=== PATIENT | female | born 1980 ===

== ENCOUNTER 2020-08-10 15:04 | Emergency (ER) | payer MEDICAID ==
[2020-08-10 15:26] VITALS: BP 121/91
--- NOTE | 2020-08-10 16:11 | Event Note ---
ED Screening Note ED Screening Note: abd pain n/v that began today hx of ventral hernia states she was at [facility] last week, states she was given nausea medication and something for reflux states she has appointment with general surgeon on 08/13/2020 allergy:ibuprofen PSHx gastric sleeve, cholecystecomy, hernia repair last BM this morning This initial assessment/diagnostic orders/clinical plan/treatment(s) is/are subject to change based on patients health status, clinical progression and re- assessment by fellow clinical providers in the ED. Further treatment and workup at subsequent clinical providers discretion. Patient/guardian urged not to elope from the ED as their condition may be serious if not clinically assessed and managed. Initial orders include: labs, UA
[2020-08-10 16:26] LABS: Basophils % (Auto) 0.7 % (0.0-1.8); Eosinophils # (Auto) 0.1 K/mm3 (0.0-0.4); Eosinophils % (Auto) 1.2 % (0.0-4.3); Hematocrit 37.1 % (30.3-42.9); Hemoglobin 12.4 gm/dl (10.1-14.3); Lymphocytes # (Auto) 1.7 K/mm3 (1.2-5.4); Lymphocytes % (Auto) 25.7 % (13.4-35.0); Mean Corpuscular HGB Conc 34 % (30-34); Mean Corpuscular Volume 92 fl (79-97); Monocytes # (Auto) 0.5 K/mm3 (0.0-0.8); Monocytes % (Auto) 7.4 % (0.0-7.3); Platelet Count 223 K/mm3 (140-440); Red Blood Count 4.02 M/mm3 (3.65-5.03); Red Cell Distribution Width 13.3 % (13.2-15.2)
[2020-08-10 16:48] LABS: Alanine Aminotransferase 41 units/L (7-56); Albumin 3.7 g/dL (3.9-5); Blood Urea Nitrogen 9 mg/dL (7-17); Calcium 8.3 mg/dL (8.4-10.2); Hemolysis Index 8
[2020-08-10 16:50] LABS: BUN/Creatinine Ratio 15
[2020-08-10] MEDS ORDERED: ONDANSETRON 4 MG/2 ML INJ IV STA (17:07)
[2020-08-10] MEDS ORDERED: HYDROmorphone 1 MG/1 ML INJ IV ONE (17:07)
[2020-08-10] MEDS ORDERED: HYOSCYAMINE SUBL 0.125 MG TAB SL ONE (17:07)
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
--- NOTE | 2020-08-10 18:36 | Cat Scan Report ---
CT abdomen pelvis w con INDICATION / CLINICAL INFORMATION: MAIN. TECHNIQUE: All CT scans at this location are performed using CT dose reduction for ALARA by means of automated e xposure control. COMPARISON: None available. FINDINGS: No free fluid is seen in the abdomen. Postsurgical changes seen at the gastroesophageal junction and in the stomach. The gallbladder has been surgically removed. Intra and extrahepatic biliary dilatatio n is seen most likely secondary to prior cholecystectomy. Fatty infiltration is present in the liver without focal abnormality. The spleen, kidneys, pancreas and adrenal glands are normal. No enlarged m esenteric or retroperitoneal lymph nodes are seen. There is an umbilical hernia containing bowel but without obstruction. In the pelvis, no free fluid is seen. Small bilateral adnexal cysts are present. No enlarged lymph no aston are identified. The bladder and the appendix are normal. Facet joint hypertrophy is seen in the l ower lumbar spine. IMPRESSION: 1. Umbilical hernia containing bowel but without obstruction 2. Postsurgical change in the gastroesophageal junction and stomach 3. Cholecystectomy with intra and extrahepatic biliary dilatation most likely secondary to gallbladde r removal 4. Patchy infiltration in the liver without focal abnormality 5. Small bilateral adnexal cysts Signer Name: Kang Rivera MD FACR Signed: 08/10/2020 6:32 PM Workstation Name: [id number]
[2020-08-10 18:37] LABS: Bilirubin,Urine NEG (Negative); Blood,Urine LG (Negative); Color,Urine Yellow (Yellow); Protein,Urine <15 mg/dL mg/dL (Negative)
== END 2020-08-10 19:20 | disposition home or self-care (01) ==
LOC: ED 15:04
DX: K42.9 Umbilical hernia without obstruction or gangrene (principal); R10.9 Unspecified abdominal pain; Z79.899 Other long term (current) drug therapy; Z88.8 Allergy status to other drugs, medicaments and biological substances
CPT/HCPCS: 36415; 74177; 80053; 81001; 83690; 85025; 96374; 96375; 99284; J1170; J2405; Q9967